=== PATIENT | female | born 1960 | race African-American/Black ===

== ENCOUNTER 2024-07-20 14:14 | Outpatient (CLI) | payer BC, SELFPAY ==
--- NOTE | ~2024-07-20 | XR_ITS ---
EXAM: XR hand RT min 3V DATE: 07/20/2024 14:42 HISTORY: M[age] - Radial styloid tenosynovitis [de Quervain] . COMPARISON: None available. FINDINGS: Decreased mineralization. No fracture or dislocation. No lytic or blastic lesion. Mild sca ttered degenerative change. No erosion or periosteal change. Soft tissues within normal limits. IMPRESSION: Osteopenia. 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 Reviewed, dictated and finalized at location [facility]. IMPRESSION: Osteopenia. 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
--- OUTSIDE RECORDS SUMMARY | 2024-07-20 14:18 | XMS_ITS | Continuity of Care Document ---
Author Organization [facility] Address [address] [place] [address] Phone Care Team Providers Care Health Education Aide Name Role Phone Sandy Aguila Unavailable Unavailable Advance Directives Directive Yes / No Effective Date File Name No Information Encounters Encounter Description Practice Location Reason(s) For Visit Diagnoses Date Provider Providers Copied on Encounter [facility], [address], [place], [place], [id number], tel:[phone] [facility] ACUTE URI NOS Cirilo Delgado. [address], [place], [id number]. tel:[phone] [facility], [address], [place], [place], [id number], tel:[phone] [facility] ESOPHAGE[employer] Doctor. [address] [place], [address], . Family History Family Member Type Diagnosis Age At Onset No Information Payers Payer name Insurance type Covered alliance party ID Authoriza tion(s) No Information Social History Type Description Quantity Date Captured Comments Sex Female Smoking Status No Information Chief Complaint And Reason For Visit No Information Reason For Referral Reason For Referral No Information History Of Present Illness Encounter Date Complaint History Of Prese nt Illness No Information Functional Status Date Functional Assessmen t No Information Instructions Date Instruction Additional Infor mation No Information Assessments Type Assessment Date No Information Patient Care Teams Name Effective Dates (start - stop) Status Members No Information
== END 2024-07-20 14:15 | disposition home or self-care (01) ==
PROVIDERS: Visit Provider Plastic Surgery
DX: M65.4 Radial styloid tenosynovitis [de Quervain] (principal); M85.841 Other specified disorders of bone density and structure, right hand
CPT/HCPCS: 73130